=== PATIENT | female | born 1970 | race Caucasian/White ===

== ENCOUNTER → 2021-02-04 | Outpatient (CLI) | payer OTHER ==
--- NOTE | 2021-02-04 17:45 | CARDNUC ---
[place] [address] CARDIAC NUCLEAR IMAGING REPORT Name: CAROLE DOYLE Room: [facility]#: [id number] Admission: 02/04/21 Attend Phys: Eleni Childress, Discharge: Date of : 68 Date of Service: 02/04/21 1744 Report #: [id number] THIS REPORT FOR: cc: Abraham Jacobs MD, Matthew W. MD Liston, Michael J. MD [facility] ~ APPROVED REPORT Study performed: 02/04/2021 09:12:37 Indication: Palpitations Patient Location: Out-Patient Stress Nurse: Courtney Ness RN Ht: 5 ft 4 in Wt: 103 lbs BSA: 1.48 m2 BMI: 17.67 Medical History Medical History: COPD, Current Smoker Medications: metoprolo Allergies: sulfa Cardiac Risk Factors: Age, Current Smoker Exercise History: Physically active Meds Held (24 hrs): metoprolol Resting Data Rest SPECT myocardial perfusion imaging was performed in supine position 30 minutes following the intravenous injection of 10.2 mCi of Tc-99m Sestamibi. Time of rest injection: 07:55 The images were gated to evaluate regional wall motion and calculate left ventricular ejection fraction. Administration Route: IV Administration Site: Left AC Exercise Stress At peak stress, the patient was injected intravenously with 31.6mCi of Tc-99m Sestamibi. Time of stress injection: 09:25 Administration Route: IV Administration Site: Left AC Heart Rate at time of stress injection: 152 bpm. Patient continued to exercise for 1 minute(s). Gated Stress SPECT was performed 30 [place] [address] CARDIAC NUCLEAR IMAGING REPORT Name: YANIRACAROLE Room: [facility]#: [id number] Admission: 02/04/21 Attend Phys: Eleni Childress, Discharge: Date of : 68 Date of Service: 02/04/21 1744 Report #: [id number] injection. The images were gated to evaluate regional wall motion and calculate left ventricular ejection fraction. Prone imaging was performed. Stress Test Details Stress Test: Exercise stress testing was performed using a [facility] protocol. HR Max Heart Rate (APMHR): 169 bpm Resting HR: 85 bpm Target HR (85% APMHR): 143 bpm Max HR Achieved: 152 bpm % of APMHR: 89 Recovery HR: 99 bpm BP Resting BP: 95/74 mmHg Max BP: 159/73 mmHg Recovery BP: 102/69 mmHg ECG Resting ECG: Sinus Rhythm Stress ECG: Sinus Tachycardia ST Change: Downsloping ST depression Maximum ST Deviation: 1 mm Arrhythmia: None Recovery ECG: Sinus Rhythm Recovery ST Change: None Recovery Arrhythmia: None Clinical Reason for Termination: Dyspnea Exercise duration: 7 min 59 sec Exercise capacity: 10.14 METs Functional Aerobic Impairment 90% Scale: Active The patient tolerated standard [facility] protocol exercise without significant cardiac symptoms. Stress ECG Conclusion The baseline twelve-lead EKG shows sinus rhythm without significant ST segment or T wave abnormality. EKGs obtained initially with exercise stress show T wave inversion in [address] segment depression diffusely that resolves at peak exercise. Post-rest EKG show no significant ST segment depression. There were no stress[place] [address] CARDIAC NUCLEAR IMAGING REPORT Name: CAROLE DOYLE Room: [facility]#: [id number] Admission: 02/04/21 Attend Phys: Eleni Mujica Monroe, Discharge: Date of : 68 Date of Service: 02/04/21 1744 Report #: [id number] Study Quality Study: Good Artifact: Mild Breast artifact Study Data At rest, the left ventricular ejection fraction was 66%.. Post stress, the left ventricular ejection was 63%.. TID = 0.92. Perfusion Perfusion images obtained at rest and post exercise stress show mild photopenia in the mid anterior wall. Post-rest prone imaging continues to show mild defect in the mid anterior wall. Wall motion in this region is completely normal on gated study suggesting breast attenuation artifact. There were no other significant fixed or reversible defects identified. Wall Motion Normal left ventricular wall motion. Nuclear Conclusion ECG Findings: equivocal Clinical Findings: negative for ischemia Nuclear Findings: negative for ischemia Exercise Capacity: normal Left Ventricular Function: normal Risk Study: low Perfusion study show no defect to suggest ischemia. There is a focal defect in the mid anterior wall likely due to breast attenuation artifact. Global LV systolic function is normal on gated studies. This is a low risk study. <Conclusion> The baseline twelve-lead EKG shows sinus rhythm without significant ST segment or T wave abnormality. EKGs obtained initially with exercise stress show T wave inversion in [address] segment depression diffusely that resolves at peak exercise. Post-rest EKG show no significant ST segment depression. There were no stress-induced arrhythmias. <ELECTRONICALLY SIGNED> By: Jacky Dean MD, FACC 02/04/21 [phone] [id number] Jacky Dean MD, FACC /INF
== END ==
LOC: M.NUC 01-11 13:02 → M.ULTRA 06:51 → M.NUC 08:00
PROVIDERS: ATTEND Internal Medicine
DX: R07.9 Chest pain, unspecified (principal); J44.9 Chronic obstructive pulmonary disease, unspecified; R94.39 Abnormal result of other cardiovascular function study; R10.9 Unspecified abdominal pain; F17.200 Nicotine dependence, unspecified, uncomplicated